=== PATIENT | male | born 1965 | race Caucasian/White ===

== ENCOUNTER 2022-11-01 00:54 | Emergency (ER) | payer MEDICAID ==
[~2022-11-01] VITALS: Ht 154.9 cm; Wt 95.0 kg
[2022-11-01 01:34] LABS: HEMATOCRIT. 47.8 % (42.0-52.0); HEMOGLOBIN. 16.7 g/dL (14.0-18.0); MEAN CORPUSCULAR HEMOGLOBIN 30.3 pg (28.0-32.0); MEAN CORPUSCULAR VOLUME 86.9 fL (80.0-94.0); MEAN PLATELET VOLUME 7.7 fl (7.4-10.4); PLATELET 153 x1000/uL (130-400)
[2022-11-01 01:51] LABS: CHLORIDE 105 mEq/L (98-107)
[2022-11-01 03:01] LABS: PLATELET ESTIMATE NORMAL
[2022-11-01] MEDS ORDERED: MAGNESIUM/ALUMINUM HYDROXIDE/SIMETHICONE 30ML UDC PO STA (04:10)
[2022-11-01] MEDS ORDERED: ONDANSETRON HCL 4MG/2ML INJ IV STA (04:10)
[2022-11-01] MEDS ORDERED: MORPHINE SULFATE 4 MG/ML CPJ (NOT FOR IM USE) IV STA (04:10)
[2022-11-01] MEDS ORDERED: SODIUM CHLORIDE 0.9% 1,000 ML IV ONE (04:15)
[2022-11-01 05:06] LABS: CLARITY URINE CLEAR (CLEAR); COLOR URINE YELLOW (YELLOW); KETONES URINE NEGATIVE (NEGATIVE); LEUKOCYTE ESTERASE URINE NEGATIVE (NEGATIVE); NITRITE URINE NEGATIVE (NEGATIVE); OCCULT BLOOD URINE NEGATIVE (NEGATIVE); PH URINE 5.5 (4.5-8.0); PROTEIN URINE TRACE (NEGATIVE); SPECIFIC GRAVITY URINE 1.037 (1.005-1.030); UROBILINOGEN URINE 0.2 E.U./dL (0.2-1.0)
[2022-11-01] MEDS ORDERED: ONDA4TAB50 MT (05:57)
[2022-11-01] MEDS ORDERED: HYDR-4001 MT (05:57)
[2022-11-01 06:00] VITALS: BP 135/74
== END 2022-11-01 06:27 | disposition home or self-care (01) ==
LOC: ER 01:34
DX: R10.9 Unspecified abdominal pain (principal); E78.00 Pure hypercholesterolemia, unspecified; E11.9 Type 2 diabetes mellitus without complications; I10 Essential (primary) hypertension
CPT/HCPCS: 36415; 74176; 80053; 81003; 82962; 83690; 85025; 96361; 96374; 96375; 99285; J2270; J2405; J7030

== ENCOUNTER 2023-05-04 19:14 | Emergency (ER) | payer MEDICAID ==
[~2023-05-04] VITALS: Ht 165.1 cm; Wt 94.4 kg
[~2023-05-04 19:14] MED LIST: CEPH500T MT; HYDR-4001 MT; NAPR-681 MT; ONDA4TAB50 MT; TERB30CR8 TP
[2023-05-04 19:49] VITALS: TEMP 98.3; O2SAT 97
[2023-05-04] MEDS ORDERED: KETOROLAC 30MG/ML VIAL IM STA (21:31)
[2023-05-04 21:36] VITALS: BP 145/80; PULSE 89; RESP 17
[2023-05-04] MEDS ORDERED: KETOROLAC 30MG/ML VIAL IM NR (21:36)
[2023-05-04 23:36] LABS: BASOPHILS % 0.6 % (0.0-2.0); EOSINOPHILS % 2.4 % (0.0-5.0); HEMATOCRIT. 44.3 % (42.0-52.0); HEMOGLOBIN. 15.4 g/dL (14.0-18.0); LYMPHOCYTES % 21.5 % (20.0-50.0); MEAN CORPUSCULAR HEMOGLOBIN 30.6 pg (28.0-32.0); MEAN CORPUSCULAR HGB CONC 34.8 g/dL (31.0-37.0); MEAN CORPUSCULAR VOLUME 88.1 fL (80.0-94.0); MONOCYTES % 4.3 % (2.0-8.0); NEUTROPHILS % 71.2 % (40.0-76.0); PLATELET 173 x1000/uL (130-400); RED BLOOD CELL COUNT 5.03 mill/uL (4.7-6.1); WHITE BLOOD COUNT 9.2 x1000/uL (4.5-11.0)
[2023-05-04 23:49] LABS: ALANINE AMINOTRANSFERASE 28 IU/L (10-49); ALBUMIN 4.2 g/dL (3.2-4.8); ASPARTATE AMINOTRANSFERASE 18 IU/L (<34); BILIRUBIN TOTAL 0.4 mg/dL (0.1-1.0); CALCIUM 9.5 mg/dL (8.7-10.4); CARBON DIOXIDE 22 mEq/L (21-32); CHLORIDE 100 mEq/L (98-107); CREATININE 0.9 mg/dL (0.6-1.3); POTASSIUM 4.1 mEq/L (3.5-5.1); PROTEIN TOTAL 7.2 g/dL (6.0-8.3); SODIUM 133 mEq/L (136-145); UREA NITROGEN BLOOD 20 mg/dL (9-23)
[2023-05-05 00:03] LABS: GLUCOSE 356 mg/dL (70-105)
[2023-05-05] MEDS ORDERED: CEFTRIAXONE SODIUM 1 G/VIAL IM ONE (00:30)
[2023-05-05] MEDS ORDERED: SULF1TAB48 MT (00:33)
[2023-05-05] MEDS ORDERED: CEPH500C2 MT (00:33)
[2023-05-05] MEDS ORDERED: IBUP-2029 MT (00:33)
== END 2023-05-05 01:25 | disposition home or self-care (01) ==
LOC: ER 19:14
DX: L03.111 Cellulitis of right axilla (principal); E11.65 Type 2 diabetes mellitus with hyperglycemia; I10 Essential (primary) hypertension; Z59.00 Homelessness unspecified
CPT/HCPCS: 99284; 80053; 85025; 36415; 96372 ×2; J1885; J0696

== ENCOUNTER 2023-05-30 21:03 | Emergency (ER) | payer MEDICAID ==
[~2023-05-30] VITALS: Ht 162.6 cm; Wt 82.0 kg
[~2023-05-30 21:03] MED LIST changes: +CEPH500C2 MT; +IBUP-2029 MT; +SULF1TAB48 MT
[2023-05-30 22:04] VITALS: O2SAT 98
[2023-05-30] MEDS ORDERED: KETOROLAC 30MG/ML VIAL IV STA (23:01)
[2023-05-30 23:05] LABS: BASOPHILS % 0.4 % (0.0-2.0); EOSINOPHILS % 2.3 % (0.0-5.0); HEMATOCRIT. 45.1 % (42.0-52.0); HEMOGLOBIN. 15.3 g/dL (14.0-18.0); MEAN CORPUSCULAR VOLUME 88.3 fL (80.0-94.0); MEAN PLATELET VOLUME 8.2 fl (7.4-10.4); NEUTROPHILS % 71.3 % (40.0-76.0); PLATELET 162 x1000/uL (130-400); RED CELL DISTRIBUTION WIDTH 13.2 % (11.6-14.6); WHITE BLOOD COUNT 9.1 x1000/uL (4.5-11.0)
[2023-05-30] MEDS ORDERED: SODIUM CHLORIDE 0.9% 1,000 ML IV ONE (23:15)
[2023-05-30] MEDS ORDERED: VANCOMYCIN 1G PREMIX 200 ML IV SCH (23:15)
[2023-05-30] MEDS ORDERED: PIPERACILLIN/TAZOBACTAM 3.375GM/50ML PREMIX IV NR (23:15)
[2023-05-30 23:18] LABS: ALANINE AMINOTRANSFERASE 32 IU/L (10-49); ALBUMIN 4.3 g/dL (3.2-4.8); ASPARTATE AMINOTRANSFERASE 26 IU/L (<34); BILIRUBIN TOTAL 0.8 mg/dL (0.1-1.0); CALCIUM 9.2 mg/dL (8.7-10.4); CARBON DIOXIDE 28 mEq/L (21-32); CHLORIDE 105 mEq/L (98-107); CREATININE 0.9 mg/dL (0.6-1.3); POTASSIUM 3.7 mEq/L (3.5-5.1); PROTEIN TOTAL 7.5 g/dL (6.0-8.3); SODIUM 138 mEq/L (136-145); UREA NITROGEN BLOOD 26 mg/dL (9-23)
[2023-05-30 23:22] LABS: GLUCOSE 174 mg/dL (70-105)
[2023-05-31 01:42] LABS: CLARITY URINE CLEAR (CLEAR); COLOR URINE DARK YELLOW (YELLOW); GLUCOSE URINE 3+ (NEGATIVE); KETONES URINE NEGATIVE (NEGATIVE); LEUKOCYTE ESTERASE URINE NEGATIVE (NEGATIVE); NITRITE URINE NEGATIVE (NEGATIVE); OCCULT BLOOD URINE NEGATIVE (NEGATIVE); PH URINE 5.5 (4.5-8.0); PROTEIN URINE 1+ (NEGATIVE); SPECIFIC GRAVITY URINE 1.034 (1.005-1.030); UROBILINOGEN URINE 0.2 E.U./dL (0.2-1.0)
[2023-05-31 01:58] LABS: BACTERIA URINE NONE SEEN; RBC URINE 0-2 /hpf (0-2); SQUAMOUS EPITHELIAL CELL URINE FEW /lpf (RARE/1+); WBC URINE 0-2 /hpf (0-2)
[2023-05-31 03:26] VITALS: BP 162/87; PULSE 73; RESP 14; TEMP 97.6
== END 2023-05-31 03:25 | disposition short-term general hospital (02) ==
LOC: ER 21:03
DX: L03.116 Cellulitis of left lower limb (principal); L03.115 Cellulitis of right lower limb; E11.65 Type 2 diabetes mellitus with hyperglycemia; E11.9 Type 2 diabetes mellitus without complications; I10 Essential (primary) hypertension
CPT/HCPCS: 80053; 85025; 87040; 36415; 71045; 96374; 99285; 81003; 87086; J7030; J2543; Z7610

== ENCOUNTER 2023-07-31 11:41 | Emergency (ER) | payer MEDICAID ==
[~2023-07-31] VITALS: Ht 167.6 cm; Wt 91.0 kg
[2023-07-31 11:48] VITALS: BP 78/53; TEMP 98.3
[2023-07-31 12:30] LABS: BASOPHILS % 0.6 % (0.0-2.0); EOSINOPHILS % 1.2 % (0.0-5.0); HEMATOCRIT. 42.6 % (42.0-52.0); HEMOGLOBIN. 14.6 g/dL (14.0-18.0); LYMPHOCYTES % 16.3 % (20.0-50.0); MEAN CORPUSCULAR HGB CONC 34.2 g/dL (31.0-37.0); MEAN CORPUSCULAR VOLUME 87.7 fL (80.0-94.0); MEAN PLATELET VOLUME 8.2 fl (7.4-10.4); MONOCYTES % 4.4 % (2.0-8.0); NEUTROPHILS % 77.5 % (40.0-76.0); PLATELET 183 x1000/uL (130-400); RED BLOOD CELL COUNT 4.86 mill/uL (4.7-6.1); RED CELL DISTRIBUTION WIDTH 13.8 % (11.6-14.6); WHITE BLOOD COUNT 8.6 x1000/uL (4.5-11.0)
[2023-07-31 12:34] LABS: ALANINE AMINOTRANSFERASE 35 IU/L (10-49); ALBUMIN 4.3 g/dL (3.2-4.8); ASPARTATE AMINOTRANSFERASE 28 IU/L (<34); BILIRUBIN TOTAL 0.7 mg/dL (0.1-1.0); CALCIUM 8.9 mg/dL (8.7-10.4); CARBON DIOXIDE 17 mEq/L (21-32); CHLORIDE 104 mEq/L (98-107); CREATININE 1.2 mg/dL (0.6-1.3); POTASSIUM 4.7 mEq/L (3.5-5.1); PROTEIN TOTAL 7.3 g/dL (6.0-8.3); SODIUM 131 mEq/L (136-145); TROPONIN I HIGH SENSITIVITY 6 ng/L (3.0-53); UREA NITROGEN BLOOD 27 mg/dL (9-23)
[2023-07-31 12:40] VITALS: PULSE 87; RESP 17; O2SAT 96
[2023-07-31] MEDS: IPRATROPIUM BROMIDE (0.02%) 0.5MG/2.5ML NEB HHN STA (12:40)
[2023-07-31] MEDS: ALBUTEROL (0.083%) 2.5MG/3ML NEB HHN STA (12:40)
[2023-07-31] MEDS: DOCUSATE SODIUM SUGAR FREE 100MG/10ML UDC NG ONE (12:51)
[2023-07-31 12:52] LABS: D-DIMER 0.19 mg/L FEU (<0.50); INR 0.9; PROTHROMBIN TIME 10.3 sec (9.6-11.0)
[2023-07-31 13:00] LABS: GLUCOSE 422 mg/dL (70-105)
[2023-07-31 15:17] LABS: TROPONIN I HIGH SENSITIVITY 5 ng/L (3.0-53)
[2023-07-31] MEDS ORDERED: ALBU6.7H15 INH (15:51)
== END 2023-07-31 16:02 | disposition home or self-care (01) ==
LOC: ER 13:54
DX: R07.9 Chest pain, unspecified (principal); E11.65 Type 2 diabetes mellitus with hyperglycemia; J45.909 Unspecified asthma, uncomplicated; E11.9 Type 2 diabetes mellitus without complications; I10 Essential (primary) hypertension
CPT/HCPCS: 80053; 83880; 85025; 85379; 85610; 84484; 36415; 71045; 94640; 93005; 99285; Z7610 ×3

== ENCOUNTER 2023-09-04 12:59 | Emergency (ER) | payer SELFPAY ==
[~2023-09-04] VITALS: Ht 172.7 cm; Wt 91.0 kg
[~2023-09-04 12:59] MED LIST changes: +ALBU6.7H15 INH
[2023-09-04 13:09] VITALS: BP 115/49; PULSE 84; RESP 18; TEMP 98.6; O2SAT 96
[2023-09-04] MEDS ORDERED: FLUT9.9S BOTHNSTRLS (14:44)
[2023-09-04] MEDS ORDERED: LORA10TA7 MT (14:44)
== END 2023-09-04 15:18 | disposition home or self-care (01) ==
LOC: ER 12:59
DX: J45.909 Unspecified asthma, uncomplicated (principal); E11.9 Type 2 diabetes mellitus without complications; I10 Essential (primary) hypertension
CPT/HCPCS: 71045; 99283

== ENCOUNTER 2024-01-29 13:10 | Emergency (ER) | payer MEDICAID, OTHER ==
[~2024-01-29] VITALS: Ht 172.7 cm; Wt 100.0 kg
[~2024-01-29 13:10] MED LIST changes: +FLUT9.9S BOTHNSTRLS; +LORA10TA7 MT
[2024-01-29 13:12] VITALS: O2SAT 95
[2024-01-29] MEDS ORDERED: INSULIN (13:12)
[2024-01-29] MEDS ORDERED: LOVASTATIN (13:12)
[2024-01-29] MEDS ORDERED: METFORMIN (13:12)
[2024-01-29] MEDS: ACETAMINOPHEN 325MG TABLET PO STA (14:55)
[2024-01-29 14:59] LABS: BASOPHILS % 0.4 % (0.0-2.0); EOSINOPHILS % 2.5 % (0.0-5.0); HEMATOCRIT. 40.1 % (42.0-52.0); HEMOGLOBIN. 13.6 g/dL (14.0-18.0); LYMPHOCYTES % 15.8 % (20.0-50.0); MEAN CORPUSCULAR HEMOGLOBIN 29.5 pg (28.0-32.0); MEAN CORPUSCULAR HGB CONC 33.9 g/dL (31.0-37.0); MEAN CORPUSCULAR VOLUME 86.9 fL (80.0-94.0); MEAN PLATELET VOLUME 8.1 fl (7.4-10.4); MONOCYTES % 6.3 % (2.0-8.0); PLATELET 138 x1000/uL (130-400); RED BLOOD CELL COUNT 4.62 mill/uL (4.7-6.1); WHITE BLOOD COUNT 8.2 x1000/uL (4.5-11.0)
[2024-01-29 15:04] LABS: CARBON DIOXIDE 25 mEq/L (21-32); CHLORIDE 103 mEq/L (98-107); POTASSIUM 4.2 mEq/L (3.5-5.1); SODIUM 134 mEq/L (136-145)
[2024-01-29 15:05] LABS: CALCIUM 8.6 mg/dL (8.7-10.4)
[2024-01-29 15:10] LABS: GLUCOSE 198 mg/dL (70-105); UREA NITROGEN BLOOD 19 mg/dL (9-23)
[2024-01-29 15:11] LABS: ALANINE AMINOTRANSFERASE 26 IU/L (10-49); ALBUMIN 3.8 g/dL (3.2-4.8); ASPARTATE AMINOTRANSFERASE 20 IU/L (<34)
[2024-01-29 15:12] LABS: BILIRUBIN DIRECT 0.2 mg/dL (<=3.0); BILIRUBIN TOTAL 0.8 mg/dL (0.1-1.0); PROTEIN TOTAL 6.3 g/dL (6.0-8.3)
[2024-01-29 18:26] LABS: CLARITY URINE CLEAR (CLEAR); COLOR URINE YELLOW (YELLOW); GLUCOSE URINE 3+ (NEGATIVE); KETONES URINE NEGATIVE (NEGATIVE); LEUKOCYTE ESTERASE URINE NEGATIVE (NEGATIVE); NITRITE URINE NEGATIVE (NEGATIVE); OCCULT BLOOD URINE NEGATIVE (NEGATIVE); PROTEIN URINE NEGATIVE (NEGATIVE); SPECIFIC GRAVITY URINE 1.028 (1.005-1.030); UROBILINOGEN URINE 0.2 E.U./dL (0.2-1.0)
[2024-01-29 18:45] VITALS: BP 102/64; PULSE 74; RESP 18; TEMP 36.89184; O2SAT 95
[2024-01-29 18:48] LABS: BACTERIA URINE NONE SEEN; RBC URINE NONE SEEN /hpf (0-2); SQUAMOUS EPITHELIAL CELL URINE RARE /lpf (RARE/1+); WBC URINE NONE SEEN /hpf (0-2)
== END 2024-01-29 18:00 | disposition home or self-care (01) ==
LOC: ER 13:16
DX: R10.11 Right upper quadrant pain (principal); J45.909 Unspecified asthma, uncomplicated; E11.9 Type 2 diabetes mellitus without complications; I10 Essential (primary) hypertension; Z87.01 Personal history of pneumonia (recurrent); Z79.899 Other long term (current) drug therapy
CPT/HCPCS: 36415; 74176; 76700; 80048; 80076; 81003; 82962; 85025; 99284